=== PATIENT | male | born 1960 ===

== ENCOUNTER 2018-08-20 19:55 | Inpatient (IN) | payer OTHER ==
[2018-08-20] MEDS ORDERED: Sodium Chloride 0.9% 1,000 ML IV STA (20:35)
[2018-08-20 20:58] LABS: BASO # 0.1 K/uL (0.0-0.2); BASO % 0.5 % (0.0-2.0); EOS % 0.1 % (0.0-4.0); HEMOGLOBIN 14.4 g/dL (12.0-18.0); LYMPH # 1.5 K/uL (1.0-4.3); LYMPH % 10.6 % (20.0-40.0); MEAN CELL VOLUME 87.8 fl (80.0-94.0); MEAN PLATELET VOLUME 9.1 fl (7.2-11.7); MONO % 6.7 % (0.0-10.0); NEUT # 11.6 K/uL (1.8-7.0); NEUT % 82.1 % (50.0-75.0); NRBC % 0.3 % (0.0-0.0); RBC 4.98 Mil/uL (4.40-5.90); RED CELL DISTRIBUTION WIDTH 12.8 % (11.5-14.5); WHITE BLOOD COUNT 14.1 K/uL (4.8-10.8)
[2018-08-20 21:07] LABS: ALB/GLOB RATIO 1.1 (1.0-2.1); ALBUMIN 4.6 g/dL (3.5-5.0); ALT/SGPT 89 U/L (21-72); AST/SGOT 105 U/L (17-59); BLOOD UREA NITROGEN 11 mg/dl (9-20); CALCIUM 9.7 mg/dL (8.4-10.2); GFR NON-AFRICAN AMERICAN > 60; LIPASE 47 U/L (23-300)
--- NOTE | 2018-08-20 21:43 | ED PDOC ---
HPI: Abdomen Time Seen by Provider: 08/20/18 20:26 Chief Complaint (Nursing): Abdominal Pain Chief Complaint (Provider): Abdominal Pain History Per: Patient History/Exam Limitations: no limitations Onset/Duration Of Symptoms: Hrs (x24) Current Symptoms Are (Timing): Still Present Associated Symptoms: Nausea, Vomiting. denies: Diarrhea, Chest Pain Additional Complaint(s): 58 year old male with no significant past medical history presents to the ED with abdominal pain, nausea, and vomiting onset 24 hours. Patient reports that after eating chicken yesterday at 6 pm he developed symptoms. He had multiple episodes of nonbloody, bilious vomiting but no diarrhea. Patient notes pain is in the upper abdomen but denies fever, cough, shortness of breath, or chest pain. PMD: none provided Past Medical History Reviewed: Historical Data, Nursing Documentation, Vital Signs Vital Signs: Last Vital Signs Temp 99.7 F H 08/20/18 20:17 Pulse 84 08/20/18 20:17 Resp 16 08/20/18 20:17 BP 161/94 H 08/20/18 20:17 Pulse Ox 99 08/20/18 20:17 - Medical History PMH: No Chronic Diseases - Surgical History Surgical History: No Surg Hx - Family History Family History: States: No Known Family Hx - Social History Current smoker - smoking cessation education provided: No Ex-Smoker (has not smoked in the last 12 months): No Alcohol: None Drugs: Denies - Home Medications Home Medications: Ambulatory Orders Medication Instructions Recorded RX: No Known Home Med 08/21/18 - Allergies Allergies/Adverse Reactions: Allergies Allergy/AdvReac Type Severity Reaction Status Date / Time No Known Allergies Allergy Verified 08/20/18 20:17 Review of Systems ROS Statement: Except As Marked, All Systems Reviewed And Found Negative Gastrointestinal: Positive for: Nausea, Vomiting, Abdominal Pain. Negative for: Diarrhea Physical Exam - Reviewed Nursing Documentation Reviewed: Yes Vital Signs Reviewed: Yes - Physical Exam Appears: Positive for: Uncomfortable Head Exam: Positive for: ATRAUMATIC, NORMOCEPHALIC Skin: Positive for: Normal Color, Warm, Dry Eye Exam: Positive for: Normal appearance, EOMI, PERRL ENT: Positive for: Other (dry mucous membranes) Neck: Positive for: Normal Cardiovascular/Chest: Positive for: Regular Rate, Rhythm. Negative for: Murmur Respiratory: Positive for: Normal Breath Sounds. Negative for: Respiratory Distress Gastrointestinal/Abdominal: Positive for: Other (Positive [place] sign ) Extremity: Positive for: Normal ROM (upper and lower). Negative for: Pedal Edema, Deformity Neurologic/Psych: Positive for: Alert, Oriented (x3) - Laboratory Results Result Diagrams: 08/20/18 20:54 08/20/18 20:54 - ECG O2 Sat by Pulse Oximetry: 99 (RA) Pulse Ox Interpretation: Normal Medical Decision Making Medical Decision Making: Time: 2026 Initial Impression: 58 year old with RUQ tenderness, nausea, and vomiting Initial Plan: --Labs --CT --Toradol --Pepcid --Zofran Time: 00:11 CT Abd/Pelvis FINDINGS: LUNG BASES: Left basilar confluent opacity is noted compatible with pneumonia. LIVER: Unremarkable. GALLBLADDER AND BILE DUCTS: The gallbladder demonstrates wall thickening, adjacent stranding and pericholecystic fluid compatible with acute cholecystitis. PANCREAS: Unremarkable. SPLEEN: Unremarkable. ADRENAL GLANDS: Unremarkable. KIDNEYS, URETERS, AND BLADDER: The kidneys appear within normal limits. There is no hydronephrosis or hydroureter. No urinary calculi are seen. STOMACH AND BOWEL: Unremarkable appearance of the stomach and bowel. No evidence of bowel obstruction. No evidence suggesting enteritis or colitis. APPENDIX: No evidence of acute appendicitis on CT examination. PERITONEUM: Trace ascites is noted in the right paracolic gutter. LYMPH NODES: No lymphadenopathy is evident. REPRODUCTIVE: Prostate gland is mildly enlarged and contains calcifications. Please correlate with PSA levels. VASCULATURE: No evidence of abdominal aortic aneurysm. BONES: No aggressive appearing osseous lesion. No acute osseous pathology evident. IMPRESSION: 1. Acute cholecystitis. 2. Trace ascites is noted in the right paracolic gutter. 3. Left basilar confluent opacity is noted compatible with pneumonia. 4. Prostate gland is mildly enlarged and contains calcifications. Please correlate with PSA levels. Time 00:28 Labs reviewed significant for leukocytosis and mild elevation of transaminases. Patient is referred to Dr. Matt, medicine radio station manager, for admission. Patient also evaluated by surgical SARA Dr Mendes Scribe Attestation: Documented by Lay Marquis, acting as a scribe for Alexi Powell MD Provider Scribe Attestation: All medical record entries made by the Scribe were at my direction and per sonally dictated by me. I have reviewed the chart and agree that the record accurately reflects my personal performance of the history, physical exam, medical decision making, and the department course for this patient. I have also personally directed, reviewed, and agree with the discharge instructions and disposition. Disposition - Clinical Impression Clinical Impression: Cholecystitis - Patient ED Disposition Is Patient to be Admitted: Yes Counseled Patient/Family Regarding: Studies Performed, Diagnosis - Disposition Disposition Time: 00:30 Condition: FAIR - Pt Status Changed To: Hospital Disposition Of: Inpatient - Admit Certification Admit to Inpatient:: After my assessment, the patient will require hospitaliza tion for at least two midnights. This is because of the severity of symptoms shown, intensity of services needed, and/or the medical risk in this patient being treated as an outpatient.
[2018-08-20] MEDS ORDERED: Iohexol 300 100 ML IJ ONE (22:52)
[2018-08-21] MEDS ORDERED: Piperacillin/Tazobact 3.375 GM in Sodium Chloride 0.9% 100 ML IV STA (00:22)
[2018-08-21 01:42] LABS: URINE BILIRUBIN NEGATIVE (NEGATIVE); URINE BLOOD NEGATIVE (NEGATIVE); URINE CLARITY SLIGHTY-CLOUDY (Clear); URINE COLOR YELLOW (YELLOW); URINE GLUCOSE (UA) 50 mg/dL (Normal); URINE LEUKOCYTE ESTERASE NEG Leu/uL (Negative); URINE PROTEIN NEGATIVE (NEGATIVE); URINE UROBILINOGEN 0.2-1.0 mg/dL (0.2-1.0)
[2018-08-21] MEDS ORDERED: Piperacillin/Tazobact 3.375 gm Inj IVPB ONE (01:43)
[2018-08-21] MEDS ORDERED: Morphine 4 MG/ML VIAL IVP PRN (01:49)
--- NOTE | 2018-08-21 01:58 | CP.PCM.CON ---
<Joce Mendes - Last Filed: 08/21/18 08:14> History of Present Illness - History of Present Illness History of Present Illness: Consult Note- Dr. Roca Reason for Consult: Acute Cholecystitits 58M w/ no diagnosed pmhx presents to [facility] ED w/ Sharp RUQ abd pain radiating to the right shoulder that started within the last 24 hours after eating fried chicken. Patient has never experienced pain like this in the past. Associated with some nausea, and one episode of non-bloody, serobilious vomiting just prior to arrival. Admits to subjective fevers. Denies recent sick contacts, foreign travel, changes in urinary or bowel habits. Denies: chills, chest pain, shortness of breath, numbness/tingling in extremities PMH: denies PSH: denies ALL: NKDA SocialHx: deneis tobacco, etoh, recreational drug use FH: non-contributory, had GB removed in the past PMD: Does not have 12 pt ROS conducted, negative otherwise stated above Review of Systems - Review of Systems All systems: reviewed and no additional remarkable complaints except - Constitutional Constitutional: As Per HPI Past Patient History - Past Social History Alcohol: None Drugs: Denies - PSYCHIATRIC Hx Substance Use: No - SURGICAL HISTORY Hx Surgeries: No - ANESTHESIA Hx Anesthesia: No Meds Allergies/Adverse Reactions: Allergies Allergy/AdvReac Type Severity Reaction Status Date / Time No Known Allergies Allergy Verified 08/20/18 20:17 - Medications Medications: Current Medications Lactated Ringer's (Lactated Ringer's) 1,000 mls @ 999 mls/hr IV .Q1H1M TIFFANIE Piperacillin Sod/Tazobactam (Sod 3.375 gm/ Sodium Chloride) 100 mls @ 100 mls/hr IVPB Q8 TIFFANIE; Protocol Lactated Ringer's (Lactated Ringer's) 1,000 mls @ 125 mls/hr IV .Q8H TIFFANIE Morphine Sulfate (Morphine) 4 mg IVP Q4 PRN PRN Reason: Pain, moderate (4-7) Ondansetron HCl (Zofran Inj) 4 mg IVP Q4 PRN PRN Reason: Nausea/Vomiting Physical Exam - Constitutional Appears: Non-toxic, No Acute Distress - Head Exam Head Exam: ATRAUMATIC - Eye Exam Eye Exam: EOMI Pupil Exam: PERRL - ENT Exam ENT Exam: Mucous Membranes Moist - Neck Exam Neck exam: Positive for: Normal Inspection - Respiratory Exam Respiratory Exam: NORMAL BREATHING PATTERN. absent: Accessory Muscle Use, Chest Wall Tenderness, Wheezes, Respiratory Distress - Cardiovascular Exam Cardiovascular Exam: REGULAR RHYTHM, +S1, +S2. absent: Bradycardia, Tachycardia - GI/Abdominal Exam GI & Abdominal Exam: Soft, Tenderness (Tenderness RUQ) Additional comments: +Gongora sign - mcburneys - Extremities Exam Extremities exam: Negative for: calf tenderness - Back Exam Back exam: NORMAL INSPECTION - Neurological Exam Neurological exam: Alert, Oriented x3 - Psychiatric Exam Psychiatric exam: Normal Affect, Normal Mood - Skin Skin Exam: Normal Color, Warm Results - Vital Signs Recent Vital Signs: Last Vital Signs Temp 99.7 F H 08/20/18 20:17 Pulse 84 08/20/18 20:17 Resp 16 08/20/18 20:17 BP 161/94 H 08/20/18 20:17 Pulse Ox 99 08/21/18 00:40 - Labs Result Diagrams: 08/21/18 04:12 08/21/18 04:12 Labs: Laboratory Results - last 24 hr 08/20/18 08/20/18 20:54 20:54 WBC 14.1 H RBC 4.98 Hgb 14.4 Hct 43.7 MCV 87.8 MCH 29.0 MCHC 33.0 RDW 12.8 Plt Count 250 MPV 9.1 Neut % (Auto) 82.1 H Lymph % (Auto) 10.6 L [place] % (Auto) 6.7 Eos % (Auto) 0.1 Baso % (Auto) 0.5 Neut # (Auto) 11.6 H Lymph # (Auto) 1.5 [place] # (Auto) 1.0 H Eos # (Auto) 0.0 Baso # (Auto) 0.1 Sodium 138 Potassium 3.7 Chloride 102 Carbon Dioxide 23 Anion Gap 17 BUN 11 Creatinine 0.6 L Est GFR ( Amer) > 60 Est GFR (Non-Af Amer) > 60 Random Glucose 176 H Calcium 9.7 Total Bilirubin 1.1 AST 105 H ALT 89 H Alkaline Phosphatase 107 Total Protein 8.9 H Albumin 4.6 Globulin 4.4 H Albumin/Globulin Ratio 1.1 Lipase 47 Assessment & Plan - Assessment and Plan (Free Text) Assessment: 58M w/ Acute Cholecystitis CT: Mildly thickening GB, fat stranding, pericholecystic fluid, acute nika. possible PNA Plan: - Analgesia PRN - Maintain O2 saturation > 92% - NPO - IVF - IVAbx; zosyn - anti-emetic PRN - Repeat AM Labs - Obtain US in AM for further evaluation - further management pending results of US - d/w Surgical Attending PGY2 <Samuel Roca - Last Filed: 08/21/18 12:48> History of Present Illness - History of Present Illness History of Present Illness: Patient was seen and examined at the bedside. Agree with resident's note above. Meds - Medications Medications: Current Medications Lactated Ringer's (Lactated Ringer's) 1,000 mls @ 999 mls/hr IV .Q1H1M TIFFANIE Last Admin: 08/21/18 06:39 Dose: Not Given Piperacillin Sod/Tazobactam (Sod 3.375 gm/ Sodium Chloride) 100 mls @ 100 mls/hr IVPB Q6H TIFFANIE; Protocol Lactated Ringer's (Lactated Ringer's) 1,000 mls @ 125 mls/hr IV .Q8H TIFFANIE Last Admin: 08/21/18 06:54 Dose: 125 mls/hr Morphine Sulfate (Morphine) 4 mg IVP Q4 PRN PRN Reason: Pain, moderate (4-7) Ondansetron HCl (Zofran Inj) 4 mg IVP Q4 PRN PRN Reason: Nausea/Vomiting Physical Exam - GI/Abdominal Exam Additional comments: soft, very mildly tender in the RUQ, ND, BS+, no rebound, no guarding, negative Gongora's sign Results - Vital Signs Recent Vital Signs: Last Vital Signs Temp 98.9 F 08/21/18 08:54 Pulse 89 08/21/18 08:54 Resp 18 08/21/18 08:54 BP 140/85 08/21/18 08:54 Pulse Ox 95 08/21/18 08:54 - Labs Result Diagrams: 08/21/18 04:12 08/21/18 04:12 Labs: Laboratory Results - last 24 hr 08/20/18 08/20/18 08/21/18 20:54 20:54 01:00 EST WBC 14.1 H RBC 4.98 Hgb 14.4 Hct 43.7 MCV 87.8 MCH 29.0 MCHC 33.0 RDW 12.8 Plt Count 250 MPV 9.1 Neut % (Auto) 82.1 H Lymph % (Auto) 10.6 L [place] % (Auto) 6.7 Eos % (Auto) 0.1 Baso % (Auto) 0.5 Neut # (Auto) 11.6 H Lymph # (Auto) 1.5 [place] # (Auto) 1.0 H Eos # (Auto) 0.0 Baso # (Auto) 0.1 PT INR APTT Sodium 138 Potassium 3.7 Chloride 102 Carbon Dioxide 23 Anion Gap 17 BUN 11 Creatinine 0.6 L Est GFR ( Amer) > 60 Est GFR (Non-Af Amer) > 60 Random Glucose 176 H Lactic Acid 1.3 Calcium 9.7 Total Bilirubin 1.1 Direct Bilirubin AST 105 H ALT 89 H Alkaline Phosphatase 107 Total Protein 8.9 H Albumin 4.6 Globulin 4.4 H Albumin/Globulin Ratio 1.1 Lipase 47 Urine Color Urine Clarity Urine pH Ur Specific [place] Urine Protein Urine Glucose (UA) Urine Ketones Urine Blood Urine Nitrate Urine Bilirubin Urine Urobilinogen Ur Leukocyte Esterase Urine RBC (Auto) Urine Microscopic WBC Blood Type Antibody Screen BBK History Checked 08/21/18 08/21/18 08/21/18 01:00 EST 04:12 04:12 WBC 11.2 H RBC 4.71 Hgb 13.8 Hct 41.3 MCV 87.8 MCH 29.2 MCHC 33.3 RDW 13.1 Plt Count 209 MPV Neut % (Auto) Lymph % (Auto) [place] % (Auto) Eos % (Auto) Baso % (Auto) Neut # (Auto) Lymph # (Auto) [place] # (Auto) Eos # (Auto) Baso # (Auto) PT INR APTT Sodium 139 Potassium 3.8 Chloride 105 Carbon Dioxide 26 Anion Gap 12 BUN 10 Creatinine 0.7 L Est GFR ( Amer) > 60 Est GFR (Non-Af Amer) > 60 Random Glucose 146 H Lactic Acid Calcium 9.0 Total Bilirubin 1.6 H Direct Bilirubin 0.3 AST 99 H ALT 99 H Alkaline Phosphatase 100 Total Protein 7.8 Albumin 4.0 Globulin 3.8 Albumin/Globulin Ratio 1.0 Lipase Urine Color Yellow Urine Clarity Slighty-cloudy Urine pH 6.0 Ur Specific [place] 1.006 Urine Protein Negative Urine Glucose (UA) 50 Urine Ketones Negative Urine Blood Negative Urine Nitrate Negative Urine Bilirubin Negative Urine Urobilinogen 0.2-1.0 Ur Leukocyte Esterase Neg Urine RBC (Auto) 1 Urine Microscopic WBC 1 Blood Type Antibody Screen BBK History Checked 08/21/18 08/21/18 04:12 05:10 WBC RBC Hgb Hct MCV MCH MCHC RDW Plt Count MPV Neut % (Auto) Lymph % (Auto) [place] % (Auto) Eos % (Auto) Baso % (Auto) Neut # (Auto) Lymph # (Auto) [place] # (Auto) Eos # (Auto) Baso # (Auto) PT 12.5 INR 1.1 APTT 32.0 Sodium Potassium Chloride Carbon Dioxide Anion Gap BUN Creatinine Est GFR ( Amer) Est GFR (Non-Af Amer) Random Glucose Lactic Acid Calcium Total Bilirubin Direct Bilirubin AST ALT Alkaline Phosphatase Total Protein Albumin Globulin Albumin/Globulin Ratio Lipase Urine Color Urine Clarity Urine pH Ur Specific [place] Urine Protein Urine Glucose (UA) Urine Ketones Urine Blood Urine Nitrate Urine Bilirubin Urine Urobilinogen Ur Leukocyte Esterase Urine RBC (Auto) Urine Microscopic WBC Blood Type A POSITIVE Antibody Screen Negative BBK History Checked No verified bt - Imaging and Cardiology CT scan - abdomen Status: Image reviewed by me, Report reviewed by me Assessment & Plan - Assessment and Plan (Free Text) Assessment: 58 y.o. male with possible cholecystitis r/o choledocholithiasis Plan: - Keep NPO - IV fluids - Continue antibiotics - Pain control - MRCP to r/o choledocholithiasis - repeat labs in am - Will follow
[2018-08-21 05:09] LABS: HEMOGLOBIN 13.8 g/dL (12.0-18.0); MEAN CELL VOLUME 87.8 fl (80.0-94.0); MEAN CORPUSCULAR HEMOGLOBIN 29.2 pg (27.0-31.0); MEAN CORPUSCULAR HGB CONC 33.3 g/dL (33.0-37.0); RBC 4.71 Mil/uL (4.40-5.90); RED CELL DISTRIBUTION WIDTH 13.1 % (11.5-14.5); WHITE BLOOD COUNT 11.2 K/uL (4.8-10.8)
[2018-08-21 05:16] LABS: INR 1.1; PROTHROMBIN TIME 12.5 Seconds (9.8-13.1)
[2018-08-21 05:18] LABS: ALT/SGPT 99 U/L (21-72); AST/SGOT 99 U/L (17-59); BILIRUBIN,DIRECT 0.3 mg/ml (0.0-0.4); BLOOD UREA NITROGEN 10 mg/dl (9-20); GFR NON-AFRICAN AMERICAN > 60
[2018-08-21] MEDS: Lactated Ringer's 1,000 ML IV SCH ×8 (06:38→18:46)
--- NOTE | 2018-08-21 08:01 | CT ---
Date of service: 08/20/2018 PROCEDURE: CT Abdomen and Pelvis with and without intravenous contrast HISTORY: RUQ pain COMPARISON: None. TECHNIQUE: Axial images of the abdomen were obtained in the pre contrast, portal venous and delayed phases of enhancement. Coronal and sagittal reformats were generated. Contrast dose: Radiation dose: Total exam DLP = 726.27 mGy-cm. This CT exam was performed using one or more of the following dose reduction techniques: Automated exposure control, adjustment of the mA and/or kV according to patient size, and/or use of iterative reconstruction technique. FINDINGS: LOWER THORAX: Small left lower lobe pneumonia. LIVER: Fatty liver GALLBLADDER AND BILE DUCTS: Gallbladder wall thickening and pericholecystic fluid consistent with acute cholecystitis. PANCREAS: Unremarkable. No gross lesion or ductal dilatation. SPLEEN: Unremarkable. ADRENALS: Unremarkable. No mass. KIDNEYS AND URETERS: Unremarkable. No hydronephrosis. No solid mass. VASCULATURE: Unremarkable. No aortic aneurysm. No aortic atherosclerotic calcification or mural plaque present. BOWEL: Unremarkable. No obstruction. No gross mural thickening. APPENDIX: Normal appendix. PERITONEUM: Unremarkable. No free fluid. No free air. LYMPH NODES: Unremarkable. No enlarged lymph nodes. BLADDER: Unremarkable. REPRODUCTIVE: Unremarkable. BONES: No acute fracture. OTHER FINDINGS: None. IMPRESSION: Acute cholecystitis. Left lower lobe infiltrate.
--- NOTE | 2018-08-21 08:52 | RAD ---
Date of service: 08/21/2018 PROCEDURE: CHEST RADIOGRAPH, 1 VIEW HISTORY: pre-op COMPARISON: None available. FINDINGS: LUNGS: Minimal linear atelectasis/fibrosis at the left base. PLEURA: No pneumothorax or pleural fluid seen. CARDIOVASCULAR: Normal. OSSEOUS STRUCTURES: No significant abnormalities. VISUALIZED UPPER ABDOMEN: Normal. OTHER FINDINGS: None. IMPRESSION: Minimal linear atelectasis/fibrosis at the left base.
--- NOTE | 2018-08-21 09:23 | CARD ---
APPROVED REPORT Date of service: 08/21/2018 EKG Measurement Heart [id number] <Conclusion> Normal sinus rhythm Normal ECG
--- NOTE | 2018-08-21 13:15 | US ---
Date of service: 08/21/2018 HISTORY: r/o Acute Cholecystitis COMPARISON: None. TECHNIQUE: Sonographic evaluation of the abdomen. FINDINGS: LIVER: Measures cm. Heterogeneous echogenicity of the liver parenchyma. No mass. No intrahepatic bile duct dilatation. GALLBLADDER: Gallstones with wall thickening and pericholecystic fluid; correlate clinically for cholecystitis. COMMON BILE DUCT: Measures mm. No stones. No dilatation. PANCREAS: Unremarkable as visualized. No mass. No ductal dilatation. RIGHT KIDNEY: Measures cm. Normal echogenicity. No calculus, mass, or hydronephrosis. LEFT KIDNEY: Measures cm. Normal echogenicity. No calculus, mass, or hydronephrosis. SPLEEN: Normal in size and contour. No mass. AORTA: No aneurysmal dilatation. IVC: Unremarkable. OTHER FINDINGS: None. IMPRESSION: Gallstones with wall thickening and pericholecystic fluid; correlate clinically for cholecystitis.
--- NOTE | 2018-08-21 18:40 | CP.PCM.HP ---
History of Present Illness - History of Present Illness History of Present Illness: 58 year old male with no significant PMHx presented to ED with sharp RUQ pain after eating yesterday. no fever/chills. evaluated by surgery. no complaints at this time, mild discomfort of RUQ. Present on Admission - Present on Admission Any Indicators Present on Admission: No Past Patient History - Past Social History Alcohol: None Drugs: Denies - CARDIAC Hx Cardiac Disorders: No - PULMONARY Hx Respiratory Disorders: No - NEUROLOGICAL Hx Neurological Disorder: No - HEENT Hx HEENT Problems: No - RENAL Hx Chronic Kidney Disease: No - ENDOCRINE/METABOLIC Hx Endocrine Disorders: No - HEMATOLOGICAL/ONCOLOGICAL Hx Blood Disorders: No - INTEGUMENTARY Hx Dermatological Problems: No - MUSCULOSKELETAL/RHEUMATOLOGICAL Hx Musculoskeletal Disorders: No - GENITOURINARY/GYNECOLOGICAL Hx Genitourinary Disorders: No - PSYCHIATRIC Hx Psychophysiologic Disorder: No - SURGICAL HISTORY Hx Surgeries: No - ANESTHESIA Hx Anesthesia: No Meds Allergies/Adverse Reactions: Allergies Allergy/AdvReac Type Severity Reaction Status Date / Time No Known Allergies Allergy Verified 08/20/18 20:17 Physical Exam - Constitutional Appears: Non-toxic, No Acute Distress - Head Exam Head Exam: NORMAL INSPECTION - Eye Exam Eye Exam: Normal appearance - Respiratory Exam Respiratory Exam: NORMAL BREATHING PATTERN - Cardiovascular Exam Cardiovascular Exam: +S1, +S2 - GI/Abdominal Exam GI & Abdominal Exam: Normal Bowel Sounds, Soft, Tenderness (ruq/epigastric) - Extremities Exam Extremities exam: Positive for: normal inspection - Back Exam Back exam: NORMAL INSPECTION - Neurological Exam Neurological exam: Alert, Oriented x3 - Psychiatric Exam Psychiatric exam: Normal Affect, Normal Mood - Skin Skin Exam: Normal Color, Warm Results - Vital Signs Recent Vital Signs: Last Vital Signs Temp 99.1 F 08/21/18 17:04 Pulse 88 08/21/18 17:04 Resp 18 08/21/18 17:04 BP 130/77 08/21/18 17:04 Pulse Ox 96 08/21/18 17:04 - Labs Result Diagrams: 08/22/18 11:40 08/22/18 11:40 Labs: Laboratory Results - last 24 hr 08/20/18 08/20/18 08/21/18 20:54 20:54 01:00 EST WBC 14.1 H RBC 4.98 Hgb 14.4 Hct 43.7 MCV 87.8 MCH 29.0 MCHC 33.0 RDW 12.8 Plt Count 250 MPV 9.1 Neut % (Auto) 82.1 H Lymph % (Auto) 10.6 L [place] % (Auto) 6.7 Eos % (Auto) 0.1 Baso % (Auto) 0.5 Neut # (Auto) 11.6 H Lymph # (Auto) 1.5 [place] # (Auto) 1.0 H Eos # (Auto) 0.0 Baso # (Auto) 0.1 PT INR APTT Sodium 138 Potassium 3.7 Chloride 102 Carbon Dioxide 23 Anion Gap 17 BUN 11 Creatinine 0.6 L Est GFR ( Amer) > 60 Est GFR (Non-Af Amer) > 60 Random Glucose 176 H Lactic Acid 1.3 Calcium 9.7 Total Bilirubin 1.1 Direct Bilirubin AST 105 H ALT 89 H Alkaline Phosphatase 107 Total Protein 8.9 H Albumin 4.6 Globulin 4.4 H Albumin/Globulin Ratio 1.1 Lipase 47 Urine Color Urine Clarity Urine pH Ur Specific [place] Urine Protein Urine Glucose (UA) Urine Ketones Urine Blood Urine Nitrate Urine Bilirubin Urine Urobilinogen Ur Leukocyte Esterase Urine RBC (Auto) Urine Microscopic WBC Blood Type Antibody Screen BBK History Checked 08/21/18 08/21/18 08/21/18 01:00 EST 04:12 04:12 WBC 11.2 H RBC 4.71 Hgb 13.8 Hct 41.3 MCV 87.8 MCH 29.2 MCHC 33.3 RDW 13.1 Plt Count 209 MPV Neut % (Auto) Lymph % (Auto) [place] % (Auto) Eos % (Auto) Baso % (Auto) Neut # (Auto) Lymph # (Auto) [place] # (Auto) Eos # (Auto) Baso # (Auto) PT INR APTT Sodium 139 Potassium 3.8 Chloride 105 Carbon Dioxide 26 Anion Gap 12 BUN 10 Creatinine 0.7 L Est GFR ( Amer) > 60 Est GFR (Non-Af Amer) > 60 Random Glucose 146 H Lactic Acid Calcium 9.0 Total Bilirubin 1.6 H Direct Bilirubin 0.3 AST 99 H ALT 99 H Alkaline Phosphatase 100 Total Protein 7.8 Albumin 4.0 Globulin 3.8 Albumin/Globulin Ratio 1.0 Lipase Urine Color Yellow Urine Clarity Slighty-cloudy Urine pH 6.0 Ur Specific [place] 1.006 Urine Protein Negative Urine Glucose (UA) 50 Urine Ketones Negative Urine Blood Negative Urine Nitrate Negative Urine Bilirubin Negative Urine Urobilinogen 0.2-1.0 Ur Leukocyte Esterase Neg Urine RBC (Auto) 1 Urine Microscopic WBC 1 Blood Type Antibody Screen BBK History Checked 08/21/18 08/21/18 04:12 05:10 WBC RBC Hgb Hct MCV MCH MCHC RDW Plt Count MPV Neut % (Auto) Lymph % (Auto) [place] % (Auto) Eos % (Auto) Baso % (Auto) Neut # (Auto) Lymph # (Auto) [place] # (Auto) Eos # (Auto) Baso # (Auto) PT 12.5 INR 1.1 APTT 32.0 Sodium Potassium Chloride Carbon Dioxide Anion Gap BUN Creatinine Est GFR ( Amer) Est GFR (Non-Af Amer) Random Glucose Lactic Acid Calcium Total Bilirubin Direct Bilirubin AST ALT Alkaline Phosphatase Total Protein Albumin Globulin Albumin/Globulin Ratio Lipase Urine Color Urine Clarity Urine pH Ur Specific [place] Urine Protein Urine Glucose (UA) Urine Ketones Urine Blood Urine Nitrate Urine Bilirubin Urine Urobilinogen Ur Leukocyte Esterase Urine RBC (Auto) Urine Microscopic WBC Blood Type A POSITIVE Antibody Screen Negative BBK History Checked No verified bt Assessment & Plan - Assessment and Plan (Free Text) Assessment: 58 year old male with no PMHx with acute cholecystitis. plan imaging reviewed pending MRCP for tomorrow c/w IV abx rest of plan as ordered
--- NOTE | 2018-08-21 19:38 | PCM.SURG1 ---
Surgeon's Initial Post Op Note - Surgeon's Notes Surgeon: MD Chanelle Manager Portable: Martine PGY3 Pre-Operative Diagnosis: Acute appendicitis Operative Findings: Inflammed appendix Post-Operative Diagnosis: Acute Appendicitis Operation Performed: Laparoscopic appendectomy Specimen/Specimens Removed: Appendix Estimated Blood Loss: EBL {In ML}: 20 Date of Surgery/Procedure: 08/21/18 Time of Surgery/Procedure: 18:15
[2018-08-21] MEDS: Piperacillin/Tazobact 3.375 GM in Sodium Chloride 0.9% 100 ML IVPB SCH (21:49)
[2018-08-22] MEDS: Lactated Ringer's 1,000 ML IV SCH ×4 (02:00→15:32)
[2018-08-22] MEDS: Piperacillin/Tazobact 3.375 GM in Sodium Chloride 0.9% 100 ML IVPB SCH ×4 (03:04→20:55)
[2018-08-22] MEDS ORDERED: Pneumococcal 23-Valent Vaccine IM ONE (08:30)
[2018-08-22] MEDS ORDERED: Sodium Chloride 0.9% 50 ML IV ONE (08:33)
[2018-08-22] MEDS ORDERED: Gadodiamide 287 MG/ML VIAL (15ML) IV ONE (08:33)
[2018-08-22] MEDS ORDERED: Propofol 10 mg/ml Inj (20 ML) ONE (11:23)
[2018-08-22] MEDS ORDERED: Midazolam 2 MG/2 ML VIAL ONE (11:23)
--- NOTE | 2018-08-22 11:23 | MRI ---
Date of service: 08/22/2018 PROCEDURE: Magnetic Resonance Cholangiopancreatography HISTORY: COMPARISON: Limited abdomen ultrasound 08/21/[address] 08/20/2018. TECHNIQUE: Multiplanar, multisequence MR images of the abdomen were obtained, including heavily T2 weighted MRCP images of the biliary system. Rotating maximum intensity projection images of the biliary system were generated. Additional imaging through the abdomen was performed prior to and following intravenous administration of 17 cc of Omniscan including but not limited to T1 weighted time dependent axial sequences. FINDINGS: MRCP: The common bile duct is of a normal caliber. No evidence of choledocholithiasis. No intrahepatic biliary ductal dilatation. LIVER: No hepatic mass or intrahepatic biliary dilatation appreciable. GALLBLADDER: Gallbladder is markedly distended with mural thickening and pericholecystic fluid collection associated. Cholelithiasis is identified in the dependent portion with normal caliber CBD appreciated. Findings are concordant with CT and abdomen ultrasound appearance of cholecystitis. SPLEEN: Unremarkable. PANCREAS: Unremarkable. ADRENALS: Unremarkable. KIDNEYS: Unremarkable. AORTA: No aneurysm. ASCITES: None. OTHER FINDINGS: None. IMPRESSION: Findings highly suggestive of cholecystitis concordant with prior CT 08/20/2018 and limited abdomen ultrasound 08/21/2018 as well. Normal caliber CBD. No choledocholithiasis. No intrahepatic biliary dilatation.
[2018-08-22] MEDS ORDERED: Succinylcholine 200 mg/10 ml Inj IV ONE (11:25)
[2018-08-22] MEDS ORDERED: Rocuronium 10 mg/ml (5 ml) ONE (11:26)
[2018-08-22] MEDS ORDERED: Bupivacaine 0.5% Inj(30mL) ONE (11:40)
[2018-08-22 11:46] LABS: BASO % 0.4 % (0.0-2.0); EOS # 0.1 K/uL (0.0-0.7); EOS % 1.1 % (0.0-4.0); HEMOGLOBIN 13.5 g/dL (12.0-18.0); LYMPH # 1.2 K/uL (1.0-4.3); LYMPH % 13.9 % (20.0-40.0); MEAN CELL VOLUME 90.8 fl (80.0-94.0); MEAN CORPUSCULAR HEMOGLOBIN 29.9 pg (27.0-31.0); MEAN CORPUSCULAR HGB CONC 32.9 g/dL (33.0-37.0); MEAN PLATELET VOLUME 9.1 fl (7.2-11.7); MONO # 0.5 K/uL (0.0-0.8); NEUT # 6.8 K/uL (1.8-7.0); NEUT % 78.6 % (50.0-75.0); NRBC % 0.1 % (0.0-0.0); RBC 4.53 Mil/uL (4.40-5.90); RED CELL DISTRIBUTION WIDTH 12.7 % (11.5-14.5); WHITE BLOOD COUNT 8.7 K/uL (4.8-10.8)
[2018-08-22] MEDS ORDERED: Lactated Ringer's 1,000 ML IV ONE ×2 (11:50→14:12)
[2018-08-22] MEDS ORDERED: ePHEDrine 50 mg/ml Inj ONE (11:55)
[2018-08-22] MEDS ORDERED: Lidocaine 2% Jelly (5 ml) TOP ONE (11:57)
[2018-08-22 12:04] LABS: ALBUMIN 3.9 g/dL (3.5-5.0); ALT/SGPT 140 U/L (21-72); AST/SGOT 131 U/L (17-59); BLOOD UREA NITROGEN 12 mg/dl (9-20); CALCIUM 8.8 mg/dL (8.4-10.2); GFR NON-AFRICAN AMERICAN > 60
[2018-08-22] MEDS ORDERED: Bupivacaine 0.5% Inj(30mL) IJ ONE ×2 (12:28→13:04)
[2018-08-22] MEDS ORDERED: Neostigmine 1:1000 (1 mg/ml) Inj ONE (12:55)
[2018-08-22] MEDS ORDERED: Oxycodone/Acetaminophen 5/325 mg Tab PO PRN ×2 (13:21)
--- NOTE | 2018-08-22 13:26 | PCM.SURG1 ---
<Celia Claros - Last Filed: 08/22/18 13:24> Surgeon's Initial Post Op Note - Surgeon's Notes Surgeon: Dr. Roca Freight Car Loader: Dr. Harlan Cassidy PGY 1 Type of Anesthesia: General Endo Pre-Operative Diagnosis: acute cholecystitis Operative Findings: acutely inflamed gangrenous gallbladder Post-Operative Diagnosis: Acute gangrenous cholecystitis Operation Performed: laparoscopic cholecystectomy Specimen/Specimens Removed: gallbladder Estimated Blood Loss: EBL {In ML}: 25 Blood Products Given: N/A Drains Used: No Drains Post-Op Condition: Fair Date of Surgery/Procedure: 08/22/18 Time of Surgery/Procedure: 11:45 <Samuel Roca - Last Filed: 08/22/18 13:33> Surgeon's Initial Post Op Note - Surgeon's Notes Freight Car Loader: Dr. Harlan Rocha PGY 1
[2018-08-22] MEDS: HYDROmorphone 0.5 mg/0.5 ml ISec IVP PRN ×4 (13:29→14:25)
--- NOTE | 2018-08-22 18:59 | CP.PCM.PN ---
Subjective - Date & Time of Evaluation Date of Evaluation: 08/22/18 Time of Evaluation: 10:00 - Subjective Subjective: patient away for MRCP. no acute events overnight. reviewed chart. discussed with nursing staff. Objective - Vital Signs/Intake and Output Vital Signs (last 24 hours): Temp Pulse Resp BP Pulse Ox 97.8 F 80 16 147/86 97 08/22/18 18:00 08/22/18 18:00 08/22/18 18:00 08/22/18 18:00 08/22/18 18:00 Intake and Output: 08/22/18 08/22/18 06:59 18:59 Intake Total 1250 Balance 1250 - Medications Medications: Current Medications Piperacillin Sod/Tazobactam (Sod 3.375 gm/ Sodium Chloride) 100 mls @ 100 mls/hr IVPB Q6H [facility]; Protocol Last Admin: 08/22/18 14:38 Dose: 100 mls Lactated Ringer's (Lactated Ringer's) 1,000 mls @ 75 mls/hr IV .[id number] [facility] Last Admin: 08/22/18 15:32 Dose: Not Given Morphine Sulfate (Morphine) 4 mg IVP Q4 PRN PRN Reason: Pain, severe (8-10) Ondansetron HCl (Zofran Inj) 4 mg IVP Q4 PRN PRN Reason: Nausea/Vomiting Oxycodone/Acetaminophen (Percocet 5/325 Mg Tab) 1 tab PO Q4 PRN PRN Reason: Pain, Mild (1-3) Stop: 08/25/18 13:22 Oxycodone/Acetaminophen (Percocet 5/325 Mg Tab) 2 tab PO Q4 PRN PRN Reason: Pain, moderate (4-7) Stop: 08/25/18 13:22 - Labs Labs: 08/22/18 11:40 08/22/18 11:40 PT 12.5 Seconds (9.8-13.1) 08/21/18 04:12 INR 1.1 08/21/18 04:12 APTT 32.0 Seconds (25.6-37.1) 08/21/18 04:12 Assessment and Plan - Assessment and Plan (Free Text) Assessment: 58 year old male with no PMHx with acute cholecystitis. plan MRCP pending c/w IV abx rest of plan as ordered
[2018-08-23] MEDS: Lactated Ringer's 1,000 ML IV SCH (02:43)
[2018-08-23] MEDS: Piperacillin/Tazobact 3.375 GM in Sodium Chloride 0.9% 100 ML IVPB SCH ×3 (03:45→16:13)
[2018-08-23 06:50] LABS: BASO % 0.4 % (0.0-2.0); EOS # 0.1 K/uL (0.0-0.7); EOS % 0.6 % (0.0-4.0); HEMOGLOBIN 13.4 g/dL (12.0-18.0); LYMPH # 1.3 K/uL (1.0-4.3); LYMPH % 14.4 % (20.0-40.0); MEAN CELL VOLUME 89.1 fl (80.0-94.0); MEAN CORPUSCULAR HEMOGLOBIN 29.4 pg (27.0-31.0); MEAN PLATELET VOLUME 9.3 fl (7.2-11.7); MONO # 0.6 K/uL (0.0-0.8); MONO % 6.5 % (0.0-10.0); NEUT # 7.1 K/uL (1.8-7.0); NEUT % 78.1 % (50.0-75.0); RBC 4.56 Mil/uL (4.40-5.90); RED CELL DISTRIBUTION WIDTH 12.9 % (11.5-14.5)
[2018-08-23 07:02] LABS: ALBUMIN 3.7 g/dL (3.5-5.0); ALT/SGPT 125 U/L (21-72); AST/SGOT 84 U/L (17-59); BLOOD UREA NITROGEN 7 mg/dl (9-20); CALCIUM 8.7 mg/dL (8.4-10.2); GFR NON-AFRICAN AMERICAN > 60
--- NOTE | 2018-08-23 07:35 | CP.PCM.PN ---
<Celia Claros - Last Filed: 08/23/18 08:01> Subjective - Date & Time of Evaluation Date of Evaluation: 08/23/18 Time of Evaluation: 07:05 - Subjective Subjective: General Surgery Progress note for Dr. Roca Patient seen and examined this am at bedside. No acute events overnight per nursing. Patient states that he has been tolerating his diet well and denies n/v. He endorses mild incisional pain but has been able to ambulate in his room throughout the night and states that his pain has been well controlled. Additionally, he is passing gas and had a small nonbloody, non melanotic stool overnight. He otherwise denies Headache, SOB, chest pain, and extremity pain or weakness. Objective - Vital Signs/Intake and Output Vital Signs (last 24 hours): Temp Pulse Resp BP Pulse Ox 98.2 F 77 20 128/88 96 08/23/18 04:00 08/23/18 04:00 08/23/18 04:00 08/23/18 04:00 08/23/18 04:00 - Medications Medications: Current Medications Piperacillin Sod/Tazobactam (Sod 3.375 gm/ Sodium Chloride) 100 mls @ 100 mls/hr IVPB Q6H [facility]; Protocol Last Admin: 08/23/18 03:45 Dose: 100 mls/hr Lactated Ringer's (Lactated Ringer's) 1,000 mls @ 75 mls/hr IV .[id number] [facility] Last Admin: 08/23/18 02:43 Dose: Not Given Morphine Sulfate (Morphine) 4 mg IVP Q4 PRN PRN Reason: Pain, severe (8-10) Ondansetron HCl (Zofran Inj) 4 mg IVP Q4 PRN PRN Reason: Nausea/Vomiting Oxycodone/Acetaminophen (Percocet 5/325 Mg Tab) 1 tab PO Q4 PRN PRN Reason: Pain, Mild (1-3) Stop: 08/25/18 13:22 Oxycodone/Acetaminophen (Percocet 5/325 Mg Tab) 2 tab PO Q4 PRN PRN Reason: Pain, moderate (4-7) Stop: 08/25/18 13:22 - Labs Labs: 08/23/18 06:10 08/23/18 06:10 PT 12.5 Seconds (9.8-13.1) 08/21/18 04:12 INR 1.1 08/21/18 04:12 APTT 32.0 Seconds (25.6-37.1) 08/21/18 04:12 - Constitutional Appears: Well, Non-toxic, No Acute Distress - Head Exam Head Exam: ATRAUMATIC, NORMOCEPHALIC - Eye Exam Eye Exam: EOMI - ENT Exam ENT Exam: Mucous Membranes Moist - Respiratory Exam Respiratory Exam: NORMAL BREATHING PATTERN - Cardiovascular Exam Cardiovascular Exam: REGULAR RHYTHM - GI/Abdominal Exam GI & Abdominal Exam: Soft, Tenderness (incisional). absent: Distended, Guarding Additional comments: incisions are cdi with dermabond in place, no drainage noted - Extremities Exam Extremities Exam: absent: Calf Tenderness, Pedal Edema - Neurological Exam Neurological Exam: Alert, Awake, Oriented x3 - Psychiatric Exam Psychiatric exam: Normal Affect, Normal Mood - Skin Skin Exam: Dry, Intact, Normal Color, Warm Additional comments: incisions are cdi with dermabond in place, no drainage from incisional sites Assessment and Plan - Assessment and Plan (Free Text) Assessment: 58 yr old male POD #1 s/p cholecystectomy Plan: regular diet c/w zosyn d/c IVF pain control will d/w Dr. Chanelle Claros, PGY 1 <Samuel Roca - Last Filed: 08/23/18 10:36> Subjective - Date & Time of Evaluation Time of Evaluation: 10:05 - Subjective Subjective: Patient was seen and examined at the bedside. Agree with resident's note above. Objective - Vital Signs/Intake and Output Vital Signs (last 24 hours): Temp Pulse Resp BP Pulse Ox 99.4 F 64 18 129/78 97 08/23/18 07:55 08/23/18 07:55 08/23/18 07:55 08/23/18 07:55 08/23/18 07:55 - Medications Medications: Current Medications Piperacillin Sod/Tazobactam (Sod 3.375 gm/ Sodium Chloride) 100 mls @ 100 mls/hr IVPB Q6H [facility]; Protocol Last Admin: 08/23/18 08:38 Dose: 100 mls/hr Morphine Sulfate (Morphine) 4 mg IVP Q4 PRN PRN Reason: Pain, severe (8-10) Ondansetron HCl (Zofran Inj) 4 mg IVP Q4 PRN PRN Reason: Nausea/Vomiting Oxycodone/Acetaminophen (Percocet 5/325 Mg Tab) 1 tab PO Q4 PRN PRN Reason: Pain, Mild (1-3) Stop: 08/25/18 13:22 Oxycodone/Acetaminophen (Percocet 5/325 Mg Tab) 2 tab PO Q4 PRN PRN Reason: Pain, moderate (4-7) Stop: 08/25/18 13:22 - Labs Labs: 08/23/18 06:10 08/23/18 06:10 PT 12.5 Seconds (9.8-13.1) 08/21/18 04:12 INR 1.1 08/21/18 04:12 APTT 32.0 Seconds (25.6-37.1) 08/21/18 04:12 - GI/Abdominal Exam Additional comments: soft, merlin-incisional tenderness, ND, BS+, no rebound, no guarding, incisions clean, no erythema, no drainage, dermobond in place Assessment and Plan - Assessment and Plan (Free Text) Plan: - Patient is clear for discharge home from the general surgery stand point - Augmentin for 10 days on discharge - Patient will follow up with me in the office in 10 days to 2 weeks for post-op visit
[2018-08-23 07:56] VITALS: RESP 18
--- NOTE | 2018-08-23 10:02 | OP ---
PROCEDURE DATE: 08/22/2018 PREOPERATIVE DIAGNOSIS: Acute cholecystitis. POSTOPERATIVE DIAGNOSIS: Acute gangrenous cholecystitis. PROCEDURE: Laparoscopic cholecystectomy. SURGEON: Samuel Roca MD WAX PUMPER: Cm Downs MD. SECOND WAX PUMPER: Harlan. TYPE OF ANESTHESIA: General endotracheal intubation. ANESTHESIOLOGIST: Matthew Boyce MD. IV FLUID INTAKE: Crystalloids. ESTIMATED BLOOD LOSS: 25 mL. INTRAOPERATIVE FINDINGS: Gangrenous cholecystitis, cholelithiasis. SPECIMEN: Gallbladder with stones. BRIEF HISTORY: Ms. Johnny Garcia is a very pleasant 58-year-old gentleman who presented to the hospital complaining of epigastric right upper quadrant abdominal pain and upon further investigation on the CAT scan and ultrasound, the patient was found to have elevated liver enzymes and ultrasound significant for cholelithiasis, so patient subsequent to that, underwent MRCP, that did not show any filling defect in the common bile duct and only revealed cholecystitis. All the risks and benefits of the procedure were explained to the patient and with the patient having a full understanding of all the risks and benefits involved, informed consent was obtained, and the patient was taken to the operating room for the above stated procedure. PROCEDURE: The patient was brought into the operating room and placed supine on the operating table. Bilateral Flowtron boots were applied to the patient's lower extremities. After successful induction of anesthesia and successful endotracheal intubation by the anesthesia team, the patient's abdomen was prepped with ChloraPrep stick and draped in a standard surgical fashion. Prior to the beginning of the procedure, a time-out was called in the room and everyone in the room were in agreement. Using Veress needle, the patient's abdomen was entered at the umbilicus, and pneumoperitoneum was achieved with good opening pressures. Subsequent to that, using an #11 blade scalpel knife, approximately 1-cm incision was made in the umbilicus in a longitudinal fashion and subsequent to that, a 11-mm trocar was introduced into the patient's abdomen. Subsequent to that, a 5-mm 0-degree scope was introduced into the patient's abdomen, abdomen was inspected. Then, attention was turned to the subxiphoid area. Using a 11-blade scalpel knife, approximately 5-mm incision was made in the transverse fashion. Subsequent to that, a 5-mm trocar was introduced into the patient's abdomen. At this point in time, using [place] dissector the omentum that was stuck to the gallbladder was teased down and the gallbladder appeared to be necrotic. Then, attention was turned to be right side of the patient's abdomen. Using a 11-blade scalpel knife, two 5-mm incision was made in the transverse fashion. Subsequent to that, another two 5-mm trocar was introduced into patient's abdomen. Subsequent to that, using two Rivera and Gemar yanne graspers, gallbladder was grasped to the fundus in the Kasie's pouch and subsequent to that using [place] dissector, cystic duct and cystic artery were dissected out and a critical view of safety was achieved. At this point in time, cystic artery was clipped with two clips proximal, one distal and transected with laparoscopic scissor. Upon further dissection, the cystic duct appeared to be too big for the clips, so I made a decision to use Vicryl Endoloop. So, the cystic duct was transected right next to the gallbladder neck and subsequent to that, Endoloop was introduced into the patient's abdomen and it was placed around the cystic duct stump. Subsequent to that, another Endoloop was introduced into the patient's abdomen and was tied around the cystic duct stump as well. At this point in time, the string was cut with laparoscopic scissor and removed from patient's abdomen. Once this was accomplished, upon further dissection, we encountered posterior branch of the cystic artery that was clipped with two clips, proximal and one distal and transected with laparoscopic scissor. Subsequent to that, the gallbladder was dissected off the gallbladder fossa using hook electrocautery and once the gallbladder was completely freed up from the gallbladder fossa, EndoCatch bag was introduced into the patient's abdomen. Gallbladder was placed inside of the bag and the bag was closed. At this point in time, gallbladder fossa and abdominal cavity were copiously irrigated with sterile saline and the fluid was suctioned out. Hemostasis was checked at the gallbladder fossa and was achieved with hook electrocautery. Subsequent to that hemostasis was confirmed. At this point in time, a 11-mm trocar together with EndoCatch bag and gallbladder were removed from the patient's abdomen and passed off to the [facility] as a specimen. Fascial layer at the umbilical port site was closed with 1 [id number] suture of 0-Vicryl on UR-5 needle and another interrupted suture of 0 Vicryl and UR-5 needle. Subsequent to that, the patient's abdomen was fully desufflated. The rest of the trocars were removed from the patient's abdomen and the skin was closed with a 4-0 Monocryl suture in a running subcuticular fashion. At the end of the procedure, the incision sites were infiltrated with 0.50% Marcaine anesthetic. The patient's abdomen was washed and dried and Dermabond was applied to the site of the incisions. Subsequent to that, the patient was successfully extubated by the anesthesia team, transferred to the stretcher, and taken to the recovery room in a stable condition. At the end of the procedure, all instrument counts, needles and sponges were correct. Samuel Roca MD
[2018-08-23 16:30] VITALS: BP 142/88; PULSE 85; TEMP 97.9; O2SAT 95
--- NOTE | 2018-08-23 17:29 | PN ---
DATE: 08/23/2018 SUBJECTIVE: The patient seen and examined. Interim events noted. Consults noted and appreciated. Surgical followup and intervention noted and appreciated. The patient remains in regular medical floor. The patient is status post surgery. The patient feels okay. Denies any chest pain, shortness of breath or abdominal pain. PHYSICAL EXAMINATION: GENERAL: The patient is afebrile. VITAL SIGNS: Stable. HEART: S1, S2 normal and regular. LUNGS: Good bilateral air exchange. ABDOMEN: Soft, nontender. No sign of acute complication. EXTREMITIES: No edema, calf swelling. No tenderness. No acute ischemia. PROVIDER RELATIONS SPECIALIST: Exam is essentially unchanged. DIAGNOSTIC DATA: Available diagnostic data reviewed. MRCP was positive for acute cholecystitis. ASSESSMENT AND PLAN: Overall, the patient is clinically stable. Plan as ordered. Jeff Mejia MD
--- NOTE | 2018-08-31 10:04 | PQF ---
PROVIDER RESPONSE TEXT: Patient was not treated for pneumonia during admission. REVIEWER QUERY TEXT: Pneumonia Specificity Pneumonia is documented in the Medical Record. Please specify the type of pneumonia and the causative organism (includes probable or suspected) Such as: Type: -- Aspiration pneumonia (please also specify the aspirate) - (please specify cause) - Please indicate if the aspiration is postprocedure -- Bacterial (please document suspected or probable organism) -- Bronchopneumonia (please document suspected or probable organism) -- Interstitial pneumonia -- Organizing pneumonia / BOOP -- Pneumonia with influenza, ariadna flu, or H1N1 flu -- RSV -- Tuberculosis, pulmonary -- Viral -- Other, please specify The patient's Clinical Indicators include: PER CONSULT 08/21 DOCUMENTATION - " POSSIBLE PNA"; PER PN 08/23 DISCHARGE ON AUGMENTIN for 10 days; P ER CHEST XRAY - IMPRESSION: LINEAR ATELECTASIS/ FIBROSIS AT LEFT BASE". PLEASE CONFIRM IF DX. OF PNEUMONIA WAS RULED IN or OUT. Query created by: Sunita Gale on 08/25/2018 4:45 PM Electronically signed by: Enoch Matt 08/31/2018 10:01 AM
== END 2018-08-23 18:30 | disposition home or self-care (01) | DRG 263 ==
LOC: H.ER 19:55 → H.ERHOLD 08-21 00:23 → H.MEDSURG1 08-21 18:07
PROVIDERS: ADMIT Family Medicine; ATTEND Family Medicine
PROC: 3E0234Z Introduction of Serum, Toxoid and Vaccine into Muscle, Percutaneous Approach (ICD-10-PCS; 2018-08-22)
PROC: 0FT44ZZ Resection of Gallbladder, Percutaneous Endoscopic Approach (ICD-10-PCS; principal; 2018-08-22 14:00)
DX: K80.00 Calculus of gallbladder with acute cholecystitis without obstruction (principal); K82.A1 Gangrene of gallbladder in cholecystitis; Z23 Encounter for immunization